=== PATIENT | female | born 1970 | race Caucasian/White ===

== ENCOUNTER 2023-03-16 07:29 | Inpatient (IN) | payer BC ==
[2023-03-10 11:21] LABS: BILIRUBIN,URINE NEGATIVE (Neg); CLARITY,URINE CLEAR (Clear); COLOR,URINE YELLOW (Yellow); GLUCOSE, URINE NEGATIVE (Neg); KETONES,URINE NEGATIVE (Neg); LEUKOCYTE ESTERASE ,URINE NEGATIVE (Neg); NITRITES, URINE NEGATIVE (Neg); OCCULT BLOOD,URINE NEGATIVE (Neg); PROTEIN,URINE NEGATIVE (Neg); UROBILINOGEN,URINE 0.2 E.U/dL (0.2-1.0)
[2023-03-10 11:22] LABS: UA COLLECTION TYPE VOIDED
[2023-03-10 11:39] LABS: BASOPHILS % (AUTO) 0.4 % (0-1); EOSINOPHILS % (AUTO) 0.8 % (0-6); LYMPHOCYTES # (AUTO) 1.4 X10'3 (1.1-4.8); LYMPHOCYTES % (AUTO) 26.1 % (21-51); MEAN CORPUSCULAR HEMOGLOBIN 30.6 PG (27.0-31.0); MEAN CORPUSCULAR HGB CONC 33.9 g/dL (33.0-36.5); MEAN CORPUSCULAR VOLUME 90.2 FL (78-98); MEAN PLATELET VOLUME 7.4 FL (7.4-10.4); MONOCYTES # (AUTO) 0.3 X10'3 (0-0.9); MONOCYTES % (AUTO) 5.6 % (2-12); NEUTROPHILS # (AUTO) 3.7 X10'3 (1.8-7.7); NEUTROPHILS % (AUTO) 67.1 % (42-75); PRE OP HEMATOCRIT 42.4 % (35.0-45.0); PRE OP HEMOGLOBIN 14.4 g/dL (12.0-16.0); PRE OP PLATELET COUNT 276 X10'3 (140-440); PRE OP WHITE BLOOD COUNT 5.5 10'3 (4.8-10.8); RED BLOOD COUNT 4.71 X10'6 (4.20-5.60); RED CELL DISTRIBUTION WIDTH 13.2 % (11.5-14.5)
[2023-03-10 11:48] LABS: PRE OP PROTIME 10.6 SECONDS (9.0-12.0)
[2023-03-10 11:50] LABS: ALBUMIN/GLOBULIN RATIO 1.1 (1.1-1.5); ALKALINE PHOSPHATASE 45 IU/L (46-116); BLOOD UREA NITROGEN 17 MG/DL (7-18); BUN/CREATININE RATIO 20.5 (10.0-20.0); CALCIUM 9.3 MG/DL (8.5-10.1); CHLORIDE 101 MMOL/L (99-107); CREATININE 0.83 MG/DL (0.40-0.90); PRE OP ALT 33 U/L (30-65); PRE OP ANION GAP 9 (8-16); PRE OP AST 20 U/L (10-37); PRE OP BILIRUB, TOTAL 1.2 MG/DL (0.0-1.0); PRE OP GLUCOSE 102 MG/DL (70-104); PRE OP POTASSIUM 3.8 MMOL/L (3.4-5.1); PRE OP SODIUM 140 MMOL/L (135-145); TOTAL CARBON DIOXIDE 30.3 MMOL/L (24-32); TOTAL PROTEIN 7.5 G/DL (6.4-8.2); eGFR 73 ML/MIN
[2023-03-10 12:01] LABS: HCG SERUM QL NEGATIVE
[2023-03-16] VITALS (17 sets, daily range): BP systolic 110–135; BP diastolic 62–74; PULSE 46–67; RESP 0–18; TEMP 97.3–98.4; O2SAT 96–100
[~2023-03-16] VITALS: Ht 167.6 cm; Wt 65.7 kg
[~2023-03-16 07:29] MED LIST: NO HOME MEDS; ceFOXitin 2GM-NS 100mL ADDvant 100 ML IV ONE; famotidine 20mg tablet PO ONE; ringers solution, lacted 1,000 ML IV SCH
[2023-03-16] MEDS ORDERED: ondansetron/PF 4mg/2ml inj IV PRN ×2 (07:40→12:20)
[2023-03-16] MEDS ORDERED: ringers solution, lacted 1,000 ML IV SCH (07:40)
[2023-03-16] MEDS ORDERED: meperidine/PF 25mg/ml syringe IV PRN ×2 (07:40)
[2023-03-16] MEDS ORDERED: proCHLORperazine 10 MG/2 ml inj IV PRN (07:40)
[2023-03-16] MEDS ORDERED: BUPIVAcaine/PF 2.5 mg/ml (0.25%) 30ml vial ONE ×2 (10:31→10:46)
[2023-03-16] MEDS ORDERED: vasoPRESSIN 20 units/ml inj. ONE (10:32)
[2023-03-16] MEDS ORDERED: BUPIVACAINE liposomal/PF 13.3 MG/ML vial IM ONE (10:45)
[2023-03-16] MEDS ORDERED: midazolam 1 mg/ML 2ml injection ONE (10:51)
[2023-03-16] MEDS ORDERED: fentaNYL /PF 50mcg/ml 5ml ampule ONE (10:52)
[2023-03-16] MEDS ORDERED: propofol inj 20 ML IV ONE (11:11)
[2023-03-16] MEDS ORDERED: LIDOcaine 2% (20mg/ml) 5ml vial ONE (11:11)
[2023-03-16] MEDS ORDERED: rocuronium 10mg/ml inj IV ONE (11:11)
[2023-03-16] MEDS ORDERED: BUPIVAcaine/PF 2.5mg/ml (0.25%) 10ml vial IJ ONE (11:59)
[2023-03-16] MEDS ORDERED: ondansetron/PF 4mg/2ml inj ONE (11:59)
[2023-03-16] MEDS ORDERED: normal saline 500ml IV soln 500 ML IV PRN (12:20)
[2023-03-16] MEDS ORDERED: HYDROcodone/acetaminophen 10/325mg tab PO PRN ×2 (12:20)
[2023-03-16] MEDS ORDERED: LORazepam 2 mg/ml vial IV PRN (12:20)
[2023-03-16] MEDS ORDERED: metoclopramide 5 mg/ml inj IV PRN (12:20)
[2023-03-16] MEDS ORDERED: temazepam 15mg capsule PO PRN (12:20)
[2023-03-16] MEDS ORDERED: diphenhydrAMINE 50 mg/ml inj IV PRN (12:20)
[2023-03-16] MEDS ORDERED: magnesium hydroxide 30ml (MOM) UD suspension PO PRN (12:20)
[2023-03-16] MEDS: meperidine/PF 25mg/ml syringe IV PRN ×2 (12:52→13:11)
[2023-03-16] MEDS: ringers solution, lacted 1,000 ML IV SCH ×2 (13:00→20:20)
[2023-03-16] MEDS: ketorolac trometh. 30mg/ml inj. IV PRN ×2 (14:07→20:07)
[2023-03-16] MEDS: simethicone 80mg chew tab PO SCH ×2 (14:07→20:07)
[2023-03-16] MEDS: acetaminophen 1,000mg/100ml IV 100 ML IV SCH ×2 (15:13→21:11)
[2023-03-16] MEDS: docusate sod 100mg capsule PO SCH (20:07)
[2023-03-17] MEDS: ringers solution, lacted 1,000 ML IV SCH (01:53)
[2023-03-17 02:00] VITALS: BP 124/69; PULSE 52; RESP 16; TEMP 98.6; O2SAT 100
[2023-03-17] MEDS: acetaminophen 1,000mg/100ml IV 100 ML IV SCH ×2 (02:00→08:13)
[2023-03-17] MEDS: ketorolac trometh. 30mg/ml inj. IV PRN ×2 (02:01→11:30)
[2023-03-17 06:47] LABS: BASOPHILS % (AUTO) 0.2 % (0-1); EOSINOPHILS % (AUTO) 0.1 % (0-6); HEMATOCRIT 34.5 % (35.0-45.0); HEMOGLOBIN 11.9 g/dl (12.0-16.0); LYMPHOCYTES # (AUTO) 1.5 X10'3 (1.1-4.8); LYMPHOCYTES % (AUTO) 17.3 % (21-51); MEAN CORPUSCULAR HEMOGLOBIN 30.9 PG (27.0-31.0); MEAN CORPUSCULAR HGB CONC 34.5 g/dL (33.0-36.5); MEAN CORPUSCULAR VOLUME 89.8 FL (78-98); MONOCYTES # (AUTO) 0.8 X10'3 (0-0.9); MONOCYTES % (AUTO) 9.3 % (2-12); NEUTROPHILS # (AUTO) 6.2 X10'3 (1.8-7.7); NEUTROPHILS % (AUTO) 73.1 % (42-75); PLATELET COUNT 191 X10'3 (140-440); RED BLOOD COUNT 3.85 X10'6 (4.20-5.60); RED CELL DISTRIBUTION WIDTH 12.6 % (11.5-14.5); WHITE BLOOD COUNT 8.5 X10'3 (4.5-11.0)
[2023-03-17 06:58] VITALS: BP 120/68; PULSE 62; RESP 17; TEMP 97.9; O2SAT 99
[2023-03-17 07:12] LABS: ALBUMIN 3.1 G/DL (3.4-5.0); ANION GAP 10 (8-16); BLOOD UREA NITROGEN 13 MG/DL (7-18); BUN/CREATININE RATIO 12.4 (10.0-20.0); CALCIUM 9.2 MG/DL (8.5-10.1); CHLORIDE 103 MMOL/L (99-107); CREATININE 1.05 MG/DL (0.40-0.90); GLUCOSE 132 MG/DL (70-104); POTASSIUM 3.9 MMOL/L (3.5-5.1); SODIUM 139 MMOL/L (135-145); TOTAL CARBON DIOXIDE 26.3 MMOL/L (24-32); eCRCL 60 ML/MIN; eGFR 55 ML/MIN
[2023-03-17 08:00] VITALS: RESP 18; O2SAT 98
[2023-03-17] MEDS: docusate sod 100mg capsule PO SCH (08:13)
[2023-03-17] MEDS: simethicone 80mg chew tab PO SCH ×2 (08:13→12:01)
[2023-03-17] MEDS ORDERED: mag hydrox/Alum hydrox/simeth 30ml oral suspension PO ONE (11:50)
[2023-03-17 12:30] VITALS: RESP 18
== END 2023-03-17 13:00 | disposition home or self-care (01) | DRG 743 ==
LOC: PAS IN 07:29 → ORTHO 4S 12:21
PROVIDERS: ADMIT Obstetrics & Gynecology Obstetrics; ATTEND Obstetrics & Gynecology Obstetrics
PROC: 0UT90ZZ Resection of Uterus, Open Approach (ICD-10-PCS; 2023-03-16)
PROC: 0UT70ZZ Resection of Bilateral Fallopian Tubes, Open Approach (ICD-10-PCS; 2023-03-16)
PROC: 3E0T3BZ Introduction of Anesthetic Agent into Peripheral Nerves and Plexi, Percutaneous Approach (ICD-10-PCS; 2023-03-16)
PROC: 0UT20ZZ Resection of Bilateral Ovaries, Open Approach (ICD-10-PCS; principal; 2023-03-16 10:45)
DX: D25.9 Leiomyoma of uterus, unspecified (principal); R32 Unspecified urinary incontinence
CPT/HCPCS: Z7506; Z7508; 36415; 71046; 80048; 80053; 81003; 82948; 84703; 85025; 85610; 85730; 86885; 86900; 86901; 87081; 93005; A4618; A7000; C1758; C9290; G0378; J0131; J0694; J1885; J2175; J2250; J2405; J2704; J3010; J3490; J7120